=== PATIENT | female | born 1995 | race Caucasian/White ===

== ENCOUNTER 2018-05-27 06:02 | Emergency (ER) | payer BC ==
[~2018-05-27] VITALS: Ht 154.9 cm; Wt 49.4 kg
[2018-05-27] MEDS ORDERED: MAALOX/HYOSCYAMINE/LIDOCAINE 45 ML BTL PO ONE (06:30)
[2018-05-27] MEDS ORDERED: FAMOTIDINE 20 MG TABLET PO ONE (06:30)
[2018-05-27] MEDS ORDERED: ONDANSETRON ODT 4 MG PO ONE (06:30)
[2018-05-27] MEDS ORDERED: FAMOTIDINE 20 MG TABLET ONE (06:31)
[2018-05-27] MEDS ORDERED: ONDANSETRON ODT 4 MG ONE (06:32)
[2018-05-27] MEDS ORDERED: MAALOX/HYOSCYAMINE/LIDOCAINE 45 ML BTL ONE (06:32)
[2018-05-27 06:43] LABS: BASOPHILS % (AUTO) 0 % (0-1); EOSINOPHILS # (AUTO) 0.06 x10^3/uL (0-0.8); EOSINOPHILS % (AUTO) 1 % (1-7); LYMPHOCYTES # (AUTO) 1.17 x10^3/uL (1-6.1); LYMPHOCYTES % (AUTO) 11 % (22-44); MD NO; MEAN CORPUSCULAR HGB CONC 33.1 g/dL (32.4-35.8); MEAN CORPUSCULAR VOLUME 93.6 fL (80-100); MEAN PLATELET VOLUME 6.9 fL (7.4-10.4); MONOCYTES # (AUTO) 0.43 x10^3/uL (0-1.4); MONOCYTES % (AUTO) 4 % (2-9); NEUTROPHILS # (AUTO) 9.45 x10^3/uL (1.8-8.0); NEUTROPHILS % (AUTO) 85 % (42-75); PLATELET COUNT 245 x10^3/uL (130-400); RED BLOOD COUNT 4.42 x10^6/uL (3.82-5.3); RED CELL DISTRIBUTION WIDTH 12.9 % (9.6-15.2)
[2018-05-27 06:59] LABS: ALANINE AMINOTRANSFERASE 83 U/L (12-78); ALBUMIN 3.9 g/dL (3.4-5.0); ANION GAP 6 mmol/L (5-15); CALCIUM 9.2 mg/dL (8.5-10.1); CHLORIDE 112 mmol/L (98-107); CREATININE 0.92 mg/dL (0.55-1.02)
[2018-05-27 07:03] LABS: ALKALINE PHOSPHATASE 86 U/L (45-117); BILIRUBIN,TOTAL 0.5 mg/dL (0.2-1.0); TOTAL PROTEIN 7.3 g/dL (6.4-8.2)
[2018-05-27 07:41] LABS: MICROSCOPIC NOT IND
[2018-05-27 07:51] LABS: CULTURE INDICATED? NO
[2018-05-27 08:12] VITALS: BP 93/49
== END 2018-05-27 08:24 | disposition home or self-care (01) ==
LOC: ED 07:23
DX: K59.00 Constipation, unspecified (principal); R10.84 Generalized abdominal pain
CPT/HCPCS: 36415; 74021; 80053; 81003; 83690; 84703; 85025; 99285; Q0162